=== PATIENT | male | born 1995 | race Caucasian/White ===

== ENCOUNTER 2024-01-25 14:59 | Outpatient (CLI) | payer OTHER, SELFPAY ==
--- NOTE | ~2024-01-25 | CT_ITS ---
EXAMINATION: CT sinus wo con DATE: 01/25/2024 15:31 INDICATION: Chronic sinusitis TECHNIQUE: Computed tomography (CT) of the paranasal sinuses was performed without intravenous contra st. The dose-length product was 606.17 mGy-cm. Automated exposure control and iterative reconstructio n technique were employed. COMPARISON: None FINDINGS: There is mucosal thickening of the ethmoid, frontal, maxillary and sphenoid sinuses. Rightw simone nasal septal deviation. Ostiomeatal units are occluded by soft tissue. No air-fluid levels. No mu coperiosteal reaction. Mastoids are pneumatized. IMPRESSION: 1. Mild pansinusitis. Reviewed, dictated and finalized at location B. IMPRESSION: 1. Mild pansinusitis.
== END 2024-01-25 15:00 | disposition home or self-care (01) ==
LOC: ANHIMG 15:03
PROVIDERS: Visit Provider Otolaryngology
DX: J32.9 Chronic sinusitis, unspecified (principal)
CPT/HCPCS: 70486